=== PATIENT | male | born 1965 ===

== ENCOUNTER → 2021-08-22 | Outpatient (REF) ==
--- NOTE | 2021-08-22 13:41 | REP ---
INDICATION: BACK PAIN COMPARISON: None. TECHNIQUE: AP, lateral, coned-down views of the lumbar spine. FINDINGS: Alignment is maintained and there is no evidence for acute fracture/compression injury or subluxation. Moderate multilevel degenerative changes include osteophytosis, endplate sclerosis, disc space narrowing and facet hypertrophy. IMPRESSION: 1. No acute fracture / compression injury or subluxation. 2. Moderate multilevel degenerative changes. <Electronically signed by Espinoza Torres > 08/22/21 2093
== END ==
LOC: M PLAIMG 11:57
PROVIDERS: ATTEND Internal Medicine
DX: M51.36 Other intervertebral disc degeneration, lumbar region (principal)